=== PATIENT | male | born 1990 | race Two or more races ===

== ENCOUNTER 2017-02-28 23:02 | Emergency (ER) | payer OTHER ==
[~2017-02-28] VITALS: Ht 175.3 cm; Wt 87.5 kg
[~2017-02-28 23:02] MED LIST: ACETAMINOPHEN 500 MG TAB PO ONE
[2017-02-28 23:08] VITALS: BP 128/79
[2017-02-28] MEDS ORDERED: ACETAMINOPHEN 500 MG TAB PO ONE (23:15)
== END 2017-03-01 01:55 | disposition home or self-care (01) ==
LOC: ER 23:02
DX: J02.9 Acute pharyngitis, unspecified (principal)